=== PATIENT | female | born 1965 | race Caucasian/White ===

== ENCOUNTER 2021-08-03 00:04 | Emergency (ER) | payer OTHER ==
[~2021-08-03 00:04] MED LIST: BENADRYL 25MG C25 MG PO; PREDNISONE10 MG PO
[2021-08-03 02:38] LABS: HEMOGLOBIN 12.9 gm/dl (12.3-15.3); RED BLOOD COUNT 4.99 M/UL (4.00-5.10)
[2021-08-03 03:01] LABS: BUN/CREATININE RATIO 18 (0-10)
[2021-08-03] MEDS ORDERED: OMNICEF 300 MG300 MG PO (05:55)
[2021-08-03] MEDS ORDERED: DRAMAMINE LESS25 MG PO (05:55)
== END 2021-08-03 06:30 | disposition home or self-care (01) ==
LOC: ER1 00:04
PROVIDERS: Physician Assistant
DX: R55 Syncope and collapse (principal); I10 Essential (primary) hypertension; Z88.6 Allergy status to analgesic agent; Z88.5 Allergy status to narcotic agent; Z20.822 Contact with and (suspected) exposure to COVID-19
CPT/HCPCS: 0240U; 70450; 71045; 80053; 81001; 82550; 82553; 83690; 83735; 83880; 84439; 84443; 84484; 85025; 85652; 86140; 87086; 99284

== ENCOUNTER → 2021-10-09 | Outpatient (CLI) | payer OTHER ==
[~2021-10-09] MED LIST changes: +DRAMAMINE LESS25 MG PO; +OMNICEF 300 MG300 MG PO
== END ==
LOC: SLEEP 14:37
DX: G47.33 Obstructive sleep apnea (adult) (pediatric) (principal)
CPT/HCPCS: 95810